=== PATIENT | male | born 1975 | race American Indian/Alaskan Native ===

== ENCOUNTER 2021-06-06 14:56 | Emergency (ER) | payer BC ==
[2021-06-06 15:23] VITALS: BP 110/75
--- NOTE | 2021-06-06 16:08 | XRay Report ---
RIGHT HAND 3 VIEWS INDICATION: right thumb pain after moving furniture. COMPARISON: None. IMPRESSION: No acute osseous or soft tissue abnormality. No significant DJD. Signer Name: Moy Benson Jr, MD Signed: 06/06/2021 4:04 PM Workstation Name: [id number]
--- NOTE | 2021-06-06 16:19 | Emergency Department Report ---
ED Upper Extremity Inj HPI - General Chief Complaint: Extremity Injury, Upper Stated Complaint: RIGHT HAND PAIN Time Seen by Provider: 06/06/21 15:29 Source: patient Mode of arrival: Ambulatory Limitations: No Limitations - History of Present Illness Initial Comments: Patient is a 45-year-old male presents emergency room complaints of right thumb pain that began 2 months ago. Patient states he was moving furniture and he is not sure what he did to the thumb but since then he has had pain. He has not seen anyone for this. He denies any numbness, weakness, swelling. No past medical history. No allergies to medications. - Related Data Previous Rx's Medication Instructions Recorded Last Taken Type HYDROcodone/APAP 5-325 [Martin 1 each PO Q6HR PRN #12 tablet 02/01/15 Unknown Rx 5/325] Ibuprofen [Motrin 800 MG tab] 800 mg PO Q8H #30 tablet 02/01/15 Unknown Rx Naproxen 375 mg PO BID PRN #14 tablet 06/06/21 Unknown Rx Allergies Allergy/AdvReac Type Severity Reaction Status Date / Time No Known Allergies Allergy Unverified 02/01/15 08:29 ED Review of Systems ROS: Stated complaint: RIGHT HAND PAIN Other details as noted in HPI Comment: All other systems reviewed and negative ED Past Medical Hx - Past Medical History Previous Medical History?: No - Surgical History Past Surgical History?: No - Social History Smoking Status: Current Every Day Smoker Substance Use Type: Alcohol, Marijuana - Medications Home Medications: Home Medications Medication Instructions Recorded Confirmed Last Taken Type HYDROcodone/APAP 5-325 [Martin 1 each PO Q6HR PRN #12 tablet 02/01/15 Unknown Rx 5/325] Ibuprofen [Motrin 800 MG tab] 800 mg PO Q8H #30 tablet 02/01/15 Unknown Rx Naproxen 375 mg PO BID PRN #14 tablet 06/06/21 Unknown Rx ED Physical Exam - General Limitations: No Limitations General appearance: alert, in no apparent distress - Head Head exam: Present: atraumatic, normocephalic - Eye Eye exam: Present: normal appearance - ENT ENT exam: Present: mucous membranes moist - Extremities Exam Extremities exam: Present: other (no bony ttp of the RUE, FROM of the RUE, pain with flexion and extension of the thumb, no snuffbox ttp, neurovascularly intact, no edema, no skin changes, no deformities) - Neurological Exam Neurological exam: Present: alert, oriented X3 - Psychiatric Psychiatric exam: Present: normal affect, normal mood - Skin Skin exam: Present: warm, dry, intact ED Course Vital Signs 06/06/21 15:20 Temperature 98.5 F Pulse Rate 72 Respiratory 16 Rate Blood Pressure 110/75 O2 Sat by Pulse 98 Oximetry ED Medical Decision Making - Radiology Data Radiology results: report reviewed Ordering Physician: IBRAHIMA SAVAGE Date of Service: 06/06/21 Procedure(s): XR hand 3+V RT Accession Number(s): [id number] cc: IBRAHIMA SAVAGE Fluoro Time In Minutes: RIGHT HAND 3 VIEWS INDICATION: right thumb pain after moving furniture. COMPARISON: None. IMPRESSION: No acute osseous or soft tissue abnormality. No significant DJD. Signer Name: Moy Benson Jr, MD Signed: 06/06/2021 4:04 PM Workstation Name: [id number] Transcribed By: TTR Dictated By: MOY BENSON JR, MD Electronically Authenticated By: MOY BENSON JR, MD Signed Date/Time: 06/06/211603 DD/ 03 TD/TT: - Medical Decision Making Patient is a 45-year-old male presents emergency room complaints of right thumb pain that began 2 months ago. Patient states he was moving furniture and he is not sure what he did to the thumb but since then he has had pain. He has not seen anyone for this. He denies any numbness, weakness, swelling. No past medical history. No allergies to medications. on exam: no bony ttp of the RUE, FROM of the RUE, pain with flexion and extension of the thumb, no snuffbox ttp, neurovascularly intact, no edema, no skin changes, no deformities. XR right hand: IMPRESSION: No acute osseous or soft tissue abnormality. No si gnificant DJD. 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 Symptoms could be related to thumb sprain. No signs of any infection. Discussed the importance of outpatient orthopedic follow-up. Advised patient Please take medication as prescribed as needed. May ice for 15 minutes at a time. Follow-up with orthopedic doctor. Return to emergency room for any new or worsening symptoms. Critical care attestation.: If time is entered above; I have spent that time in minutes in the direct care of this critically ill patient, excluding procedure time. ED Disposition Clinical Impression: Pain of right thumb Disposition: 01 HOME / SELF CARE / HOMELESS Is pt being admited?: No Does the pt Need Aspirin: No Condition: Stable Instructions: Thumb Sprain Additional Instructions: Please take medication as prescribed as needed. May ice for 15 minutes at a time. Follow-up with orthopedic doctor. Return to emergency room for any new or worsening symptoms. Prescriptions: Naproxen 375 mg PO BID PRN #14 tablet PRN Reason: pain Referrals: ROSAMARIA MICHELLE MD [Staff Physician] - 3-5 Days [facility] [Provider Group] - 3-5 Days Forms: Work/School Release Form(ED) Time of Disposition: 16:17 Print Language: KHMER
== END 2021-06-06 17:05 | disposition home or self-care (01) ==
LOC: ED 14:56
DX: M79.644 Pain in right finger(s) (principal); F17.200 Nicotine dependence, unspecified, uncomplicated
CPT/HCPCS: 99283